=== PATIENT | female | born 1990 | race Caucasian/White ===

== ENCOUNTER 2019-05-02 08:00 | Outpatient (CLI) | payer OTHER | END 2019-05-02 23:59 | disposition home or self-care (01) | LOC: LAB.R 08:00 | PROVIDERS: ATTEND Nurse Practitioner Obstetrics & Gynecology | DX: R05 Cough (principal) | CPT/HCPCS: 81599 ==

== ENCOUNTER 2019-05-28 07:08 | Outpatient (CLI) | payer OTHER ==
[2019-05-28 08:29] LABS: HGB - HEMOGLOBIN 11.2 g/dL (12.0-16.0); MEAN CORPUSCULAR HEMOGLOBIN 31.5 pg (27.0-31.0); MEAN CORPUSCULAR HGB CONC 32.4 g/dL (32.0-36.0); MEAN CORPUSCULAR VOLUME 97.2 fL (81.0-99.0); MEAN PLATELET VOLUME 12.1 fL (7.9-10.8); RED BLOOD COUNT 3.56 10^6/uL (4.20-5.40); RED CELL DISTRIBUTION WIDTH 13.7 % (12.0-15.0); WHITE BLOOD COUNT 8.5 x10^3/uL (4.8-10.8)
== END 2019-05-28 07:09 | disposition home or self-care (01) ==
LOC: LAB 07:08
PROVIDERS: ATTEND Nurse Practitioner Obstetrics & Gynecology
DX: Z34.90 Encounter for supervision of normal pregnancy, unspecified, unspecified trimester (principal)
CPT/HCPCS: 36415; 82950; 85027; 86850

== ENCOUNTER 2019-06-13 07:00 | Outpatient (CLI) | payer OTHER ==
[2019-06-13 17:53] LABS: BASOPHILS % (AUTO) 0.5 %; EOSINOPHILS # (AUTO) 0.1 10^3/uL (0.0-0.7); EOSINOPHILS % (AUTO) 0.7 %; HGB - HEMOGLOBIN 11.5 g/dL (12.0-16.0); LYMPHOCYTES # (AUTO) 1.2 10^3/uL (1.5-3.5); LYMPHOCYTES % (AUTO) 15.2 %; MEAN CORPUSCULAR HEMOGLOBIN 30.3 pg (27.0-31.0); MEAN CORPUSCULAR HGB CONC 30.9 g/dL (32.0-36.0); MEAN CORPUSCULAR VOLUME 98.2 fL (81.0-99.0); MEAN PLATELET VOLUME 12.4 fL (7.9-10.8); MONOCYTES # (AUTO) 0.7 10^3/uL (0.0-1.0); MONOCYTES % (AUTO) 8.5 %; NEUTROPHILS # (AUTO) 5.7 10^3/uL (1.5-6.6); NEUTROPHILS % (AUTO) 74.4 %; PLT - PLATELET COUNT 126 10^3/uL (130-450); RED BLOOD COUNT 3.79 10^6/uL (4.20-5.40); RED CELL DISTRIBUTION WIDTH 14.1 % (12.0-15.0); WHITE BLOOD COUNT 7.6 x10^3/uL (4.8-10.8)
== END 2019-06-13 23:59 | disposition home or self-care (01) ==
LOC: LAB.WCP 07:00
PROVIDERS: ATTEND Advanced Practice Midwife
DX: O99.119 Other diseases of the blood and blood-forming organs and certain disorders involving the immune mechanism complicating pregnancy, unspecified trimester (principal); Z3A.00 Weeks of gestation of pregnancy not specified; D69.6 Thrombocytopenia, unspecified
CPT/HCPCS: 36415; 85025

== ENCOUNTER 2019-07-05 08:00 | Outpatient (CLI) | payer OTHER ==
[2019-07-05 13:24] LABS: HGB - HEMOGLOBIN 12.1 g/dL (12.0-16.0); MEAN CORPUSCULAR HEMOGLOBIN 30.9 pg (27.0-31.0); MEAN CORPUSCULAR HGB CONC 31.4 g/dL (32.0-36.0); MEAN CORPUSCULAR VOLUME 98.5 fL (81.0-99.0); MEAN PLATELET VOLUME 12.9 fL (7.9-10.8); RED BLOOD COUNT 3.91 10^6/uL (4.20-5.40); RED CELL DISTRIBUTION WIDTH 14.2 % (12.0-15.0); WHITE BLOOD COUNT 8.9 x10^3/uL (4.8-10.8)
== END 2019-07-05 23:59 | disposition home or self-care (01) ==
LOC: LAB.WCP 08:00
PROVIDERS: ATTEND Advanced Practice Midwife
DX: D69.6 Thrombocytopenia, unspecified (principal)
CPT/HCPCS: 36415; 85027

== ENCOUNTER 2019-08-06 07:00 | Outpatient (CLI) | payer OTHER ==
[2019-08-06 19:03] LABS: TRICHOMONAS VAGINALIS DNA NEGATIVE (NEGATIVE)
== END 2019-08-06 23:59 | disposition home or self-care (01) ==
LOC: LAB.R 07:00
PROVIDERS: ATTEND Advanced Practice Midwife
DX: Z34.90 Encounter for supervision of normal pregnancy, unspecified, unspecified trimester (principal); Z36.85 Encounter for antenatal screening for Streptococcus B
CPT/HCPCS: 87491; 87591; 87661; 87797

== ENCOUNTER 2019-08-10 08:05 | Outpatient (CLI) | payer OTHER ==
[2019-08-10 08:30] VITALS: BP 127/76
--- NOTE | 2019-08-10 15:12 | PROCEDURE REPORT ---
- HPI Diagnosis/Indication for NST: Other ( arrhythmia) Current EDU 08/31/19 Gestation 37 Weeks and 0 Days 1 Para 0 Vital Signs Temperature 99.0 F 08/10/19 08:27 Heart Rate 98 08/10/19 08:27 Respiratory Rate 16 08/10/19 08:27 Blood Pressure 127/76 08/10/19 08:27 O2 Saturation 100 08/10/19 08:27 Temperature 99.0 F 08/10/19 08:27 Heart Rate 98 08/10/19 08:27 Respiratory Rate 16 08/10/19 08:27 Blood Pressure 127/76 08/10/19 08:27 O2 Saturation 100 08/10/19 08:27 - NST Procedure NST Procedure Start Date 08/10/19 Start Time 08:20 Stop Time 08:40 Vibroacoustic Stimulation Used No Patient States Movement Yes - Results and Plan Findings/Impression: 28yo G1 at 37w with arrhthmia. Reactive NST Rare, mild contraction Plan f/u as scheduled
== END 2019-08-10 08:45 | disposition home or self-care (01) ==
LOC: WFO 08:05 → FBP 08:12 → WFO 08:45
PROVIDERS: ATTEND Obstetrics & Gynecology
DX: O36.8330 Maternal care for abnormalities of the fetal heart rate or rhythm, third trimester, not applicable or unspecified (principal); Z3A.37 37 weeks gestation of pregnancy
CPT/HCPCS: 59025

== ENCOUNTER 2019-08-13 08:00 | Outpatient (CLI) | payer OTHER | END 2019-08-13 23:59 | disposition home or self-care (01) | LOC: LAB.R 08:00 | PROVIDERS: ATTEND Advanced Practice Midwife | DX: Z34.90 Encounter for supervision of normal pregnancy, unspecified, unspecified trimester (principal); Z36.89 Encounter for other specified antenatal screening | CPT/HCPCS: 87077; 87081; 87181; 87797 ==

== ENCOUNTER 2019-08-14 07:53 | Outpatient (CLI) | payer OTHER ==
[2019-08-14 08:21] VITALS: BP 115/74
--- NOTE | 2019-08-14 16:05 | PROCEDURE REPORT ---
- HPI Diagnosis/Indication for NST: Other ( PAC) Current EDU 08/31/19 Gestation 37 Weeks and 4 Days 1 Para 0 Vital Signs Temperature 37.1 C 08/14/19 08:18 Heart Rate 100 08/14/19 08:18 Respiratory Rate 16 08/14/19 08:18 Blood Pressure 115/74 08/14/19 08:18 O2 Saturation 100 08/14/19 08:18 Temperature 37.1 C 08/14/19 08:18 Heart Rate 100 08/14/19 08:18 Respiratory Rate 16 08/14/19 08:18 Blood Pressure 115/74 08/14/19 08:18 O2 Saturation 100 08/14/19 08:18 - NST Procedure NST Procedure Start Date 08/14/19 Start Time 08:15 Stop Time 08:40 Vibroacoustic Stimulation Used No Patient States Movement Yes - Results and Plan Findings/Impression: reactive NST Plan: contiue with twice weekly NST
--- NOTE | 2019-08-14 16:07 | PROCEDURE REPORT ---
- HPI Diagnosis/Indication for NST: Oligohydramnios (ARIANE normal) Current EDU 08/31/19 Gestation 37 Weeks and 4 Days 1 Para 0 Vital Signs Temperature 37.1 C 08/14/19 08:18 Heart Rate 100 08/14/19 08:18 Respiratory Rate 16 08/14/19 08:18 Blood Pressure 115/74 08/14/19 08:18 O2 Saturation 100 08/14/19 08:18 Temperature 37.1 C 08/14/19 08:18 Heart Rate 100 08/14/19 08:18 Respiratory Rate 16 08/14/19 08:18 Blood Pressure 115/74 08/14/19 08:18 O2 Saturation 100 08/14/19 08:18 - NST Procedure NST Procedure Start Date 08/14/19 Start Time 08:15 Stop Time 08:40 Vibroacoustic Stimulation Used No Patient States Movement Yes - Results and Plan Findings/Impression: reactive NST Plan: continue with twice weekly NST with ARIANE
== END 2019-08-14 08:41 | disposition home or self-care (01) ==
LOC: WFO 07:53 → FBP 07:56 → WFO 08:41
PROVIDERS: ATTEND Advanced Practice Midwife
DX: O41.03X0 Oligohydramnios, third trimester, not applicable or unspecified (principal); O36.8330 Maternal care for abnormalities of the fetal heart rate or rhythm, third trimester, not applicable or unspecified; Z3A.37 37 weeks gestation of pregnancy
CPT/HCPCS: 59025

== ENCOUNTER 2019-08-17 07:52 | Outpatient (CLI) | payer OTHER ==
[2019-08-17 08:22] VITALS: BP 121/64
--- NOTE | 2019-08-17 13:40 | PROCEDURE REPORT ---
- HPI Diagnosis/Indication for NST: Other ( arrythmia) Current EDU 08/31/19 Gestation 38 Weeks and 0 Days 1 Para 0 Vital Signs Temperature 98.2 F 08/17/19 08:07 Heart Rate 74 08/17/19 08:07 Respiratory Rate 16 08/17/19 08:07 Blood Pressure 121/64 08/17/19 08:07 Temperature 98.2 F 08/17/19 08:07 Heart Rate 74 08/17/19 08:07 Respiratory Rate 16 08/17/19 08:07 Blood Pressure 121/64 08/17/19 08:07 O2 Saturation - NST Procedure NST Procedure Start Date 08/17/19 Start Time 08:01 Stop Time 08:24 Vibroacoustic Stimulation Used No Patient States Movement Yes EFM 135 mod bo 15x15 accels no decels TOCO: irritable - Results and Plan Findings/Impression: Patient is a 28 yo at 38 wga with affected by arrythmia Cat I tracing Cont with twice weekly NST and routine OB care
== END 2019-08-17 08:30 | disposition home or self-care (01) ==
LOC: WFO 07:52 → FBP 07:57 → WFO 08:30
PROVIDERS: ATTEND Obstetrics & Gynecology
DX: O36.8330 Maternal care for abnormalities of the fetal heart rate or rhythm, third trimester, not applicable or unspecified (principal); Z3A.38 38 weeks gestation of pregnancy
CPT/HCPCS: 59025

== ENCOUNTER 2019-08-21 07:55 | Outpatient (CLI) | payer OTHER ==
[2019-08-21 08:07] VITALS: BP 125/63
--- NOTE | 2019-08-22 12:38 | PROCEDURE REPORT ---
- HPI Diagnosis/Indication for NST: Other ( arrythmia) Current EDU 08/31/19 Gestation 38 Weeks and 4 Days 1 Para 0 Vital Signs Temperature 36.7 C 08/21/19 08:06 Heart Rate 81 08/21/19 08:06 Respiratory Rate 18 08/21/19 08:06 Blood Pressure 125/63 08/21/19 08:06 O2 Saturation 100 08/21/19 08:06 Temperature 36.7 C 08/21/19 08:06 Heart Rate 81 08/21/19 08:06 Respiratory Rate 18 08/21/19 08:06 Blood Pressure 125/63 08/21/19 08:06 O2 Saturation 100 08/21/19 08:06 - NST Procedure NST Procedure Start Date 08/21/19 Start Time 08:05 Stop Time 08:31 Vibroacoustic Stimulation Used No Patient States Movement Yes - Results and Plan Findings/Impression: NST performed 08/21/2019 NST read 08/21/2019 NST Findings Baseline 140,moderate variability, accels present one variable decel with curt of 120, spontaneously resolved. NST continued for 30min, no further decel Impression: NST reassuring and reactive No arrythmia apparent Plan: Continue twice weekly NST until delivery
== END 2019-08-21 08:35 | disposition home or self-care (01) ==
LOC: WFO 07:55 → FBP 07:59 → WFO 08:35
PROVIDERS: ATTEND Advanced Practice Midwife
DX: O36.8330 Maternal care for abnormalities of the fetal heart rate or rhythm, third trimester, not applicable or unspecified (principal); Z3A.38 38 weeks gestation of pregnancy
CPT/HCPCS: 59025

== ENCOUNTER 2019-08-24 07:53 | Outpatient (CLI) | payer OTHER ==
[2019-08-24 08:13] VITALS: BP 112/62
--- NOTE | 2019-08-24 16:31 | PROCEDURE REPORT ---
- HPI Diagnosis/Indication for NST: Other ( arrhythmia) Current EDU 08/31/19 Gestation 39 Weeks and 0 Days 1 Para 0 Vital Signs Temperature 98.8 F 08/24/19 08:07 Heart Rate 84 08/24/19 08:07 Respiratory Rate 16 08/24/19 08:07 Blood Pressure 112/62 08/24/19 08:07 Temperature 98.8 F 08/24/19 08:07 Heart Rate 84 08/24/19 08:07 Respiratory Rate 16 08/24/19 08:07 Blood Pressure 112/62 08/24/19 08:07 O2 Saturation - NST Procedure NST Procedure Start Date 08/24/19 Start Time 08:05 Stop Time 08:25 Vibroacoustic Stimulation Used No Patient States Movement Yes - Results and Plan Findings/Impression: 28yo G1 at 39 weeks with reactive NST done secondary arrythmia VSS afeb No complaints Plan: Follow up as scheduled.
== END 2019-08-24 08:30 | disposition home or self-care (01) ==
LOC: WFO 07:53 → FBP 07:56 → WFO 08:30
PROVIDERS: ATTEND Obstetrics & Gynecology
DX: O36.8330 Maternal care for abnormalities of the fetal heart rate or rhythm, third trimester, not applicable or unspecified (principal); Z3A.39 39 weeks gestation of pregnancy
CPT/HCPCS: 59025

== ENCOUNTER 2019-08-27 17:06 | Observation (INO) | payer OTHER ==
[2019-08-27] MEDS ORDERED: CARBOPROST TROMETHAMINE 250 MCG/ML AMP IM PRN (17:31)
[2019-08-27] MEDS ORDERED: ONDANSETRON 4 MG/2 ML VIAL IVP PRN (17:31)
[2019-08-27] MEDS ORDERED: SODIUM CHLORIDE FLUSH 0.9% 10 ML SYRINGE IVP PRN (17:31)
[2019-08-27] MEDS ORDERED: TRANEXAMIC ACID 1,000 MG in SODIUM CHLORIDE 0.9% 100ML 100 ML IV PRN (17:31)
[2019-08-27] MEDS ORDERED: miSOPROStoL 200 MCG TABLET PR ONE (17:31)
[2019-08-27] MEDS ORDERED: ONDANSETRON ODT 4 MG TABLET TL PRN (17:31)
[2019-08-27] MEDS ORDERED: OXYTOCIN/SODIUM CHLORIDE 500 ML IV PRN ×2 (17:31)
[2019-08-27] MEDS ORDERED: MINERAL OIL LIGHT 10 ML MC PRN (17:31)
[2019-08-27] MEDS ORDERED: LIDOCAINE-MPF 1% 30 ML VIAL ID PRN (17:31)
[2019-08-27] MEDS ORDERED: METHYLERGONOVINE 0.2 MG/ML VIAL IM PRN (17:31)
[2019-08-27] MEDS ORDERED: ceFAZolin 2 GM in SODIUM CHLORIDE 0.9% 100ML 100 ML IV ONE (17:31)
[2019-08-27] MEDS ORDERED: miSOPROStoL 200 MCG TABLET PR PRN (17:31)
[2019-08-27] MEDS ORDERED: ACETAMINOPHEN 325 MG TABLET PO PRN (17:31)
[2019-08-27] MEDS ORDERED: fentaNYL 100 MCG/2 ML VIAL IVP PRN (17:31)
[2019-08-27] MEDS ORDERED: DOXYLAMINE 25 MG TABLET PO PRN (17:37)
[2019-08-27 17:45] VITALS: BP 122/82
[2019-08-27] MEDS ORDERED: miSOPROStoL 100 MCG TABLET BC SCH (18:00)
[2019-08-27] MEDS ORDERED: LACTATED RINGERS 1,000 ML IV SCH (18:00)
--- NOTE | 2019-08-27 18:04 | HISTORY & PHYSICAL EXAMINATION ---
Admit History - Visit Reason Visit Reason: Other (Induction of labor related to arrythmia) - : 1 Parity: 0 Premature: 0 Ectopic: 0 : 0 Care: positive: [facility] Complications This : positive: Other ( Arrythmia Thrombocytopenia-mild GBS Positive) Smoking Status: Never smoker - Mother's Labs Mother's Blood Type: positive: O Mother's RH: positive: Positive GBS: positive: Group B Strep Positive Rubella Status: positive: Immune - Other Maternal History Other Maternal History: 28yo at 39.3 wks gestation who presents today for pre-induction cervical ripening induction of labor for monitored arrythmia. Denies Ctx Reports FM, Denies VB/LOF Care- with [facility] and adequate complications * Arrythmia- followed by MFM. Cleared for delivery at [facility] unless heart rate is >200. Then needs to transfer to [facility] with MD to MD transfer call. Twice weekly NSTs performed- WNL Will need pediatric EKG in first 24 hours of life * Thrombocytopenia- platelets 121 07/05/2019 * GBS positive-PCN allergy- cefazolin indicated Dating Criteria * Initial US at 6.6wks gestation for JENN of 08/31/2019 OB Hx * G1: current Medications * PNV- daily Allergies * Penicillin (moderate) Medical History * Unremarkable Surgical History * Surgery for Abnormal Pap * [place] teeth removal Family History * Mother- chronic venous insufficiency, Osteoporosis * Father- HTN * PGM- Breast Cancer, HTN * PGF- Stroke/CVA, dementia, DM * Brother- Psychiatric care Social History- ? never smoker, no ETOH, otherwise noncontributory Labs -O pos/Rubella immune -Hep B neg; Hep C neg; VZV immune -RPR non-reactive; HIV neg; GC/CT neg -Genetic testing: CF neg; serum integrated screen - neg -02/07/2019 pap - neg -Glucola- 82 Immunizations * TDAP 05/30/2019 SVE in office: 0.5/60%/-2/soft/posterior Assessment * 28yo at 39.3wks gestation by 6.6wk US * Cook 4- unfavorable cervix * GBS positive * Reassuring FHTs Plan * Admit to OBS(until active labor, SROM, AROM, epidural, or pitocin) for pre- induction cervical ripening * Misoprostol 50mcg BC q4h per protocol * Monitoring- Continuous- notify provider if difficulty r/t arrythmia or for tachycardia * Comfort measures available- whirlpool tub, fentanyl, epidural * Diet/Activity to patient preference * Anticipate Review of Systems - Constitutional Constitutional: denies: Fatigue, Fever, Chills, Weakness - Eyes Eyes: denies: Pain, Blurred vision, Field loss - Ears, Nose & Throat Ears, Nose & Throat: denies: Ear pain, Vertigo, Nasal pain, Nasal congestion, Postnasal drainage, Sore throat - Cardiovascular Cariovascular: denies: Irregular heart rate, Palpitations, Chest pain, Syncope - Respiratory Respiratory: denies: Cough, Wheezing, SOB at rest - Gastrointestinal Gastrointestinal: denies: Abdominal pain, Constipation, Diarrhea, Nausea, Vomiting - Genitourinary Genitourinary: denies: Dysuria, Frequency, Urgency, Hematuria - Musculoskeletal Musculoskeletal: denies: Muscle pain, Back pain, Muscle aches - Integumentary Integumentary: denies: Rash, Pruritis, Lesions - Neurological Neurological: denies: General weakness, Headache, Dizziness, Numbness - Psychiatric Psychiatric: denies: Depression, Anxiety, Suicidal Physical - Abdominal Exam Vital Signs: Temp Pulse Resp BP Pulse Ox 37.1 C 94 18 122/82 H 08/27/19 17:32 08/27/19 17:32 08/27/19 17:32 08/27/19 17:32 Contraction Frequency (min/apart): none Uterine Resting Tone: positive: Soft - Monitoring Heart Rate Baseline: 135 Strip Review: positive: Category I - Presentation Presentation: positive: Vertex - Vaginal Exam Membranes: positive: Membranes intact Dilation (in cm): .5 Effacement (%): 60 Station: positive: -2 Cervical Position: positive: Posterior Plan for Labor - Plan For Labor I expect patient to be DC'd or transferred within 96 hours.: Yes
[2019-08-27 19:07] LABS: BASOPHILS % (AUTO) 0.4 %; EOSINOPHILS # (AUTO) 0.1 10^3/uL (0.0-0.7); EOSINOPHILS % (AUTO) 0.7 %; HGB - HEMOGLOBIN 12.1 g/dL (12.0-16.0); LYMPHOCYTES # (AUTO) 1.6 10^3/uL (1.5-3.5); LYMPHOCYTES % (AUTO) 21.8 %; MEAN CORPUSCULAR HEMOGLOBIN 30.9 pg (27.0-31.0); MEAN CORPUSCULAR VOLUME 93.6 fL (81.0-99.0); MONOCYTES # (AUTO) 0.8 10^3/uL (0.0-1.0); NEUTROPHILS % (AUTO) 66.4 %; PLT - PLATELET COUNT 106 10^3/uL (130-450); RED BLOOD COUNT 3.92 10^6/uL (4.20-5.40); RED CELL DISTRIBUTION WIDTH 13.7 % (12.0-15.0); WHITE BLOOD COUNT 7.5 x10^3/uL (4.8-10.8)
--- NOTE | 2019-08-27 22:57 | DISCHARGE TRANSFER SUMMARY ---
"Transfer Summary Admit Date: 08/27/19 Transfer Date: 08/27/19 Discharging Provider: Michelle Villavicencio Code Status: Attempt Resuscitation Condition at Discharge: Good Discharge Disposition: Transfer Acute Care Hosp Transfer to Location: [facility] - DIAGNOSES Admission Diagnoses: 28yo at 39.3wks gestation who presents for induction of labor related to arrythmia. Discharge Diagnoses with Status of Each Condition: 28yo at 39.3 wks gestation with arrhythmia complicating induction of labor- - HPI History of Present Illness: This 28yo presented today at 39.3wks gestation for induction of labor. Her was complicated by arrhythmia, mild thrombocytopenia, and GBS positive status with PCN allergy. - CONSULTS | PROCEDURES Consultations: Dr Mukesh Whitney Procedures: Continuous monitoring - HOSPITAL COURSE Hospital Course: monitoring from 1700 until time of transfer. Unable to interpret baseline/accels vs decels due to arrhythmia. Moderate variability. Unable to proceed with induction of labor due to inability to evaluate wellbeing reliably. Dr Mukesh Whitney, the vocational childcare teacher hospitalist OB for [facility] consulted, per [facility] recommendations in . Discussed hospital course and agreed to accept transfer of patient to evaluate for induction. Will be admitted through ED/L&D triage. Pt and accepting provider agreeable to pt using private vehicle to transfer to [facility]. - ALLERGIES Allergies/Adverse Reactions: Allergies Allergy/AdvReac Type Severity Reaction Status Date / Time Penicillins Allergy Rash Verified 08/27/19 18:02 - PHYSICAL EXAM AT DISCHARGE General Appearance: positive: No acute distress, Alert. negative: Anxious Eyes Bilateral: positive: Normal inspection Neck: positive: Nml inspection Respiratory: positive: Chest non-tender Cardiovascular: positive: Regular rate & rhythm Abdomen: positive: Non-tender, Other (Gravid) Skin: positive: Color nml, No rash, Warm, Dry Extremities: positive: Non-tender, Full ROM Neurologic/Psychiatric: positive: Oriented x3 - LABS Result Diagrams: 08/27/19 18:37"
[2019-08-28] MEDS ORDERED: SODIUM CHLORIDE FLUSH 0.9% 10 ML SYRINGE IVP SCH (01:00)
--- NOTE | 2019-08-30 12:59 | PROVIDER PROGRESS NOTE ---
Subjective - Prog Note Date Prog Note Date: 08/27/19 Prog Note Time: 19:00 - Subjective Pt reports feeling: No change (Juleit Oreilly 1990 was admitted to the [facility] 08/27/2019 for induction of labor related to arrythmia.) Objective - Lab Results Fish Bones: 08/27/19 18:37
== END 2019-08-27 23:18 | disposition short-term general hospital (02) ==
LOC: WFO 17:06 → FBP 17:07 → WFO 17:30 → INTOOBSV 17:31 → UNDOADMIN 17:31 → FBP 17:31 → UNDODISIN 23:18
PROVIDERS: ADMIT Advanced Practice Midwife; ATTEND Advanced Practice Midwife
DX: O36.8330 Maternal care for abnormalities of the fetal heart rate or rhythm, third trimester, not applicable or unspecified (principal); O99.113 Other diseases of the blood and blood-forming organs and certain disorders involving the immune mechanism complicating pregnancy, third trimester; D69.6 Thrombocytopenia, unspecified; O99.820 Streptococcus B carrier state complicating pregnancy; Z3A.39 39 weeks gestation of pregnancy; Z53.09 Procedure and treatment not carried out because of other contraindication; Z88.1 Allergy status to other antibiotic agents
CPT/HCPCS: 36415; 85025; A9270; G0378; J7120